=== PATIENT | male | born 1945 | race Caucasian/White ===

== ENCOUNTER 2024-06-29 14:10 | Outpatient (CLI) | payer MEDICARE, SELFPAY ==
--- NOTE | 2024-07-04 21:13 | P.PCNPFT_ITS ---
PFT Procedure Performed PFT Procedure Performed Plethysmography (Lung Vol) Diffusing Cap (DLCO) Spirometry w/o Bronchodil PFT Interpretation DOS: 06/29/2024 REQUESTING: David Driscoll MD REASON FOR TESTING: COPD PULMONARY FUNCTION TESTS Results are reliable and reproducible. Repeatability of spirometry FEV1 maneuver is Grade A. Spirometry: The FEV1 is 1.19 L, 42%, significantly decreased. The pre- bronchodilator FVC is 3.06 L, 80%, normal. The FEV1/FVC ratio is 39%, decreased, consistent with airflow obstruction. Lung volumes: The total lung capacity is 8.09 L, 118%, normal. The residual volume is 5.03 L, 197%, increased consistent with air trapping. The RV/TLC is 62%, consistent with air trapping. Airway resistance is increased. Diffusion: DLCO is 7.8, severely decreased, 33% predicted. The DLCO/VA is 1.88, 50%, mildly decreased. Flow volume loop: The flow volume loop shows saw tooth pattern in the expiratory limb, which can be seen in obstructive sleep apnea. IMPRESSION: This study shows a severe obstructive ventilatory impairment, air trapping and a severe diffusion impairment with partial correction for alveolar volume. No bronchodilator was given. No prior studies to compare. Anabel Bentley MD
== END 2024-06-29 14:11 | disposition home or self-care (01) ==
LOC: ANHPFT 14:12
PROVIDERS: PCP Internal Medicine; Visit Provider Internal Medicine
DX: J44.9 Chronic obstructive pulmonary disease, unspecified (principal)
CPT/HCPCS: 94375; 94726; 94729